=== PATIENT | female | born 1955 | race Caucasian/White ===

== ENCOUNTER 2022-06-16 12:17 | Day surgery (SDC) | payer MEDICARE ==
[2022-06-15 08:17] VITALS: BMI 28.1
[~2022-06-16 12:17] MED LIST: ACETAMINOPHEN TAB 500 MG TAB PO PRN; HEPARIN SODIUM,PORCINE/PF 5,000 UNIT/0.5 ML SYRINGE SQ PRN; LACTATED RINGERS 1,000 ML IV SCH; Pre Op ABX Message 1 EACH MISC MISCELLANE ONE
[2022-06-16] MEDS ORDERED: ONDANSETRON 4 MG/2 ML VIAL ONE (12:52)
[2022-06-16 12:55] VITALS: RESP 16; TEMP 97
[2022-06-16] MEDS ORDERED: ONDANSETRON 4 MG/2 ML VIAL IVP ONE (12:55)
[2022-06-16] MEDS ORDERED: DEXAMETHASONE SOD PHOSPHATE 4 MG/ML 1 ML VIAL IVP ONE (12:55)
--- NOTE | 2022-06-16 13:36 | P.HPADDEND ---
H&P Addendum H&P Addendum Date: 06/16/22 Please refer to office dictation from 05/12. Patient with right quintanilla squamous cell cancer. Here for surgical excision. No changes since her previous evaluation. We'll proceed with surgical excision at this time.
[2022-06-16] MEDS ORDERED: MIDAZOLAM 2 MG/2 ML VIAL ONE (13:43)
[2022-06-16] MEDS ORDERED: PROPOFOL 10 MG/ML 20 ML VIAL IV ONE (13:43)
[2022-06-16] MEDS ORDERED: LIDOCAINE 2% INJ 20 MG/ML (2 ML VIAL) ONE (13:43)
[2022-06-16] MEDS ORDERED: fentaNYL (PF) 50 MCG/ML 2 ML AMP ONE (13:43)
[2022-06-16] MEDS ORDERED: BUPIVACAIN-EPI 0.25%-1:200,000 30 ML VIAL SQ ONE (13:48)
[2022-06-16] MEDS ORDERED: NALOXONE 0.4 MG/ML 1 ML VIAL IV PRN (14:31)
[2022-06-16] MEDS ORDERED: HYDROcodone/APAP 5-325MG 1 EACH TAB PO PRN (14:31)
--- NOTE | 2022-06-16 14:37 | P.OP ---
Date of Procedure: 06/16/22 Procedure(s) Performed: PREOPERATIVE DIAGNOSIS: Squamous cell skin cancer right quintanilla POSTOPERATIVE DIAGNOSIS: Same PROCEDURE: Wide excision squamous cell skin cancer right quintanilla with intermediate closure SURGEON: Pat EBL: 2 mL ANESTHESIA: Sedation plus local COMPLICATIONS: None OPERATIVE PROCEDURE: Patient placed on the operating table in the supine position. Patient's right lower extremity prepped and draped sterilely. The 1 cm squamous cell skin cancer was present medial aspect of the mid right quintanilla. Using a skin marker 6-8 mm margins were drawn out laterally and medially. 2.5 cm by 5 cm incision was then made using the scalpel after localizing with Marcaine. Flaps were then raised medially and laterally using electrocautery. Subcutaneous tissues closed using interrupted 3-0 Vicryl sutures and the skin using a running 4-0 nylon suture. Length of intermediate closure 5 cm. Sterile dressings were applied. DISPOSITION: Stable to recovery room
[2022-06-16 14:45] VITALS: BP 153/82; PULSE 52
== END 2022-06-16 15:10 | disposition home or self-care (01) ==
LOC: OR 12:17
PROVIDERS: ATTEND Surgery
DX: L57.0 Actinic keratosis (principal); L81.4 Other melanin hyperpigmentation; F41.9 Anxiety disorder, unspecified; M19.90 Unspecified osteoarthritis, unspecified site; Z98.890 Other specified postprocedural states; Z90.710 Acquired absence of both cervix and uterus; Z87.891 Personal history of nicotine dependence; Z80.1 Family history of malignant neoplasm of trachea, bronchus and lung; Z80.0 Family history of malignant neoplasm of digestive organs
CPT/HCPCS: 11603; 12032; 88305; J2250; J1100; J2405; J3010; J2704; J1644; J2001